=== PATIENT | female | born 2005 | race Two or more races ===

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

== ENCOUNTER 2025-03-04 17:02 | Emergency (ER) | payer MEDICAID, SELFPAY ==
[2025-03-04 18:07] VITALS: BP 103/61; PULSE 72; RESP 16; TEMP 37.3; O2SAT 98; BMI 18.6
--- NOTE | 2025-03-04 18:22 | EKG_ITS ---
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
--- NOTE | 2025-03-04 19:08 | PD.EDRECHK ---
ED Recheck Abnl Lab Rx-RME/HPI General Chief Complaint: Recheck/Abnormal Lab/Rx Stated Complaint: FATIGUE, ABNORMAL EKG Time Seen by Provider: 03/04/25 19:00 Arrival date/time: 03/04/25 17:02 20F with no known PMH presents to ED with evaluation after patient went sent by PCP for abnormal EKG. Patient has had several years of intermittent episodes of syncope that PCP is working-up. Patient has also had about 1.5 months of fatigue. Patient does not feel any different than before but was just sent by PCP today due to EKG computer reading. Limitations: no limitations Related Data Previous Rx's ?Medication ?Instructions ?Recorded diphenhydramine HCl 25 mg capsule 25 mg PO TID PRN allergic reaction 08/16/23 (Benadryl) #10 caps Allergies Allergy/AdvReac Type Severity Reaction Status Date / Time amoxicillin Allergy Severe Hives Verified 11/12/24 10:34 Penicillins Allergy Severe Hives Verified 11/12/24 10:34 Review of Systems Review of Systems Systems Reviewed: All systems reviewed, normal except as documented Constitutional Constitutional: Reports as per HPI and Reports fatigue Endocrine Endocrine: Reports fatigue Past Medical History Social History SMOKING STATUS: Never smoker ED Exam General Limitations: Present no limitations General appearance: Present alert and in no apparent distress Head Head exam: Present atraumatic Eye Eye exam: Present normal appearance, PERRL and EOMI Neck Neck exam: Present normal inspection, full ROM and trachea midline Chest Chest inspection: Present normal inspection and symmetric chest wall rise Respiratory Respiratory exam: Present normal lung sounds bilaterally Cardiovascular Cardiovascular exam: Present regular rate, normal rhythm and normal heart sounds Neurological Exam Neurological exam: Present alert and oriented X3 Psychiatric Psychiatric exam: Present normal affect and normal mood Skin Skin exam: Present warm, dry, intact and normal color Course Quality Measures none Orders Category Date Time Status EKG (ED ONLY) *Do not use* NOW Care 03/04/25 18:22 Completed EKG (ED Only) Stat Exams 03/04/25 18:22 Draft Vital Signs Vital signs: Vital Signs Temperature 99.2 F 03/04/25 18:07 Pulse Rate 72 03/04/25 18:07 Respiratory Rate 16 03/04/25 18:07 Blood Pressure 103/61 03/04/25 18:07 Pulse Oximetry (%) 98 03/04/25 18:07 Oxygen Delivery Method Room Air 03/04/25 18:07 O2 at 98% on RA and WNLs Recheck / Abnormal Lab / Rx MDM Narrative MDM Narrative:: 20F with no known PMH presents to ED with evaluation after patient went sent by PCP for abnormal EKG. Patient has had several years of intermittent episodes of syncope that PCP is working-up. Patient has also had about 1.5 months of fatigue. Patient does not feel any different than before but was just sent by PCP today due to EKG computer reading. Physical exam reveals normal pupil response and EOM. Speech normal. Clear lungs and normal WOB. RRR. Patient is afebrile, calm, and alert. EKG of EKG done at clinic showed NSR with no RBBB, which the computer on her previous EKG read as such. Repeat EKG is the same. There is a T-wave inversion in V1, but that is likely a normal variant given her age. Patient had recent normal brain MRI and has outpatient cards referral pending. [employer] given. Patient feels good to follow-up outpatient. Patient data External records reviewed:: None Clinical information provided by:: patient Social determinants that could affect healthcare access:: none Patient has the following chronic illnesses:: none How is presenting disease/condition affected by chronic disease/condition?: no chronic disease Evaluation data The following diagnostics were reviewed and interpreted by me:: EKG tracing(s) Lab and/or radiology exams considered but not ordered:: ordered Interpretation Summary: above Medications / Prescriptions Medications or Prescriptions considered but not ordered:: not ordered Medication administrations:: n/a Consultations Consultation(s) initiated? (list below): No Diagnosis Recheck Differential Diagnosis: encounter for medication refill, encounter for wound recheck, encounter for recheck of burn, encounter for removal of sutures, warfarin-induced coagulopathy and other (fatigue) Most likely diagnosis given after review of the tests above:: fatigue Admission Indicated Admission indicated?: not indicated Admission Request Was there a request for admission?: No Disposition Plan Disposition Plan: Discharge Discharge Attestation Discharge Attestation: The patient and all family members were given an opportunity to ask questions and understood the discharge instructions. Discharge instructions specifically effects, indications for sooner follow up or return to the emergency department, and the expected course of current diagnosis. Patient condition: Stable Discharge Plan Plan Patient Disposition: HOME (Self Care) Discharge Disposition comment: Stable Prescriptions/Referrals Prescriptions/Med Rec: No Action diphenhydramine HCl [Benadryl] 25 mg capsule 25 mg PO TID PRN (Reason: allergic reaction) Qty: 10 0RF Problem List Clinical Impression: Fatigue Patient/Caregiver Discharge Instructions Education Materials: ED Weakness (Uncertain Cause) Additional Instructions: Please follow-up with PCP within 24-48 hours and return immediately if symptoms worsen. Print Language: Burmese Stand Alone Forms: Patient Portal Info Letter PA/[employer]ICAN [employer] CERTIFIED ORTHOTIST Supervising Physician PA/AM[employer] CERTIFIED ORTHOTIST Supervising Physician: Dr. Noble
== END 2025-03-04 20:09 | disposition home or self-care (01) ==
LOC: SERX 19:15
PROVIDERS: Emergency Provider Emergency Medicine
DX: R53.83 Other fatigue (principal); R94.31 Abnormal electrocardiogram [ECG] [EKG]
CPT/HCPCS: 93005; 99281